=== PATIENT | male | born 1985 | race African-American/Black ===

== ENCOUNTER → 2024-10-18 13:03 | Outpatient (CLI) | payer OTHER, SELFPAY ==
--- NOTE | 2024-10-18 13:07 | DI.MRI.S_ITS ---
PROCEDURE: MR ANKLE LT WO CON INDICATIONS: PAIN TECHNIQUE: Noncontrast sagittal T1 spin echo and T2 fast spin echo with fat saturation, axial proton density fast spin echo and T2 fast spin echo with fat saturation, coronal T1 spin echo and T2 fast spin echo with fat saturation through the ankle/hindfoot. COMPARISON: None. FINDINGS: Image quality: Excellent. Bones and joints: There is significant marrow edema involving lateral cuneiform and dorsal aspect of cuboid without discrete fracture line. Soft tissue swelling is also seen over dorsal and lateral aspect of midfoot and hindfoot. Mild marrow edema is also seen involving 3rd through 5th metatarsal shafts without discrete fracture line. No osteochondral injuries of talar dome. No suspicious intraosseous lesion. No significant joint effusion or calcified intra-articular loose bodies. Medial structures: The posterior tibialis, flexor digitorum longus, and flexor hallucis longus tendons are intact. The posterior tibial neurovascular bundle appears normal within the tarsal tunnel, without extrinsic mass effect. The deltoid ligament and spring ligament are intact. Lateral structures: The anterior talofibular, calcaneofibular, and posterior talofibular ligaments appear thickened with intrasubstance T2 hyperintense signal more notably involving posterior talofibular ligament.. Small septated cystic structure adjacent to posterior aspect of posterior talofibular ligament is seen and measures 1.1 x 1 x 1.3 cm in size. More superiorly, the anterior and posterior tibiofibular ligaments appear intact, as is the intermalleolar ligament. The tibiofibular syndesmosis is normal in width at 2 mm or less. The peroneus longus and brevis tendons are thickened at the level of mid to distal calcaneus and calcaneocuboid joint. Mild edema and fluid is seen within the sinus tarsi. Anterior structures: The tibialis anterior, extensor hallucis longus, and extensor digitorum longus tendons appear intact. The dorsal talonavicular ligament appears intact. Posterior and plantar structures: Diffusely thickened Achilles tendon extending to its posterior calcaneal insertion is seen. Medial and lateral bands of the plantar fascia are of normal thickness. No abductor digiti quinti muscle atrophy to suggest Sherman neuropathy. IMPRESSION: 1. Likely bony contusion involving lateral cuneiform and cuboid as well as 3rd through 5th metatarsal bases. No fracture or dislocation. No osteochondral injuries of talar dome. No significant joint effusion. 2. Low-grade sprain/intrasubstance partial-thickness tear involving anterior and posterior talofibular ligaments and calcaneofibular ligament with suggestion of ganglion cyst adjacent to posterior aspect of posterior talofibular ligament as above. No full-thickness ankle ligament rupture. 3. Tendinosis involving peroneus tendons at the level of mid to distal calcaneus and cuboid. 4. Diffusely thickened Achilles tendon suggestive of tendinosis. No full- thickness tendon rupture. Dictated by: Kwadwo Suggs M.D. on 10/20/2024 at 9:27 Approved by: Kwadwo Sugsg M.D. on 10/20/2024 at 9:45
== END ==
LOC: MRI 13:05
PROVIDERS: Referring Provider Podiatrist; Visit Provider Podiatrist
DX: S93.492A Sprain of other ligament of left ankle, initial encounter (principal); S93.412A Sprain of calcaneofibular ligament of left ankle, initial encounter; M25.572 Pain in left ankle and joints of left foot; M25.372 Other instability, left ankle; X58.XXXA Exposure to other specified factors, initial encounter
CPT/HCPCS: 73721